=== PATIENT | male | born 1955 | race Two or more races ===

== ENCOUNTER 2025-01-20 22:53 | Inpatient (IN) | payer OTHER ==
[~2025-01-20] VITALS: Ht 177.8 cm; Wt 81.6 kg
[~2025-01-20 22:53] MED LIST: ASA325 MG; ATACAND32 MG; CIPRO500 MG PO; CRESTOR40 MG PO; DIOVAN HCT 80/11 TA1 PO; DIOVAN40 MG PO; FLAGYL500MG PO; IBUPROFEN800 MG PO; INTESTINEX1 CA1 PO; LIPITOR80 MG; NEURONTIN800 MG PO; PLAVIX75 MG; SONATA10 M1 PO; ZOCOR40 MG PO
[2025-01-20] MEDS ORDERED: ATIVAN2 M1 PO (23:38)
[2025-01-20] MEDS ORDERED: AMLODIPINE-OLM1 EAC3 (23:38)
[2025-01-21] MEDS ORDERED: 0.9 % SODIUM CHLORIDE 1,000 ML IV STA (01:51)
[2025-01-21] MEDS ORDERED: KETOROLAC TROMETHAMINE 30 MG VIAL IV STA (01:52)
[2025-01-21] MEDS ORDERED: MORPHINE SULFATE 4 MG/ML VIAL IV STA (01:53)
[2025-01-21] MEDS ORDERED: PIPERACILLIN/TAZOBACTAM SODIUM 3.375 GM VIAL IV STA (02:01)
[2025-01-21 02:39] LABS: URINE APPEARANCE Clear; URINE BILIRRUBIN Negative (NEGATIVE); URINE BLOOD Negative; URINE COLOR Yellow; URINE GLUCOSE Negative (NEGATIVE); URINE KETONE Negative (NEGATIVE); URINE LEUKOCYTE Negative; URINE NITRATE Negative; URINE PROTEIN Negative (NEGATIVE); URINE UROBILINOGEN 0.2 E.U./dl
[2025-01-21 02:40] LABS: HEMATOCRIT 48.1 % (39.0-48.0); MEAN CELL VOLUME 88.6 fL (80.0-100.00); MEAN CORPUSCULAR HEMOGLOBIN 29.4 pg (27.00-32.0); MEAN CORPUSCULAR HGB CONC 33.2 g/dl (32.0-36.0); PLATELET COUNT 271 K/uL (150-450); RED BLOOD COUNT 5.43 M/uL (4.00-6.00); RED CELL DISTRIBUTION WIDTH 14.2 % (11.5-14.5)
[2025-01-21 03:12] LABS: BILIRUBIN TOTAL 0.48 mg/dL (0.3-1.2); CALCIUM 9.6 mg/dL (8.5-10.1); CREATININE SERUM 1.31 mg/dL (0.70-1.30); GFR 53.94; GLOBULINA 4.8 G/DL (2.4-3.5); POTASSIUM 4.59 mEq/L (3.5-5.1); TOTAL PROTEIN 8.8 gm/dL (6.4-8.2)
[2025-01-21 03:16] LABS: INR 1.03; PARTIAL THROMBOPLASTIN TIME 28.5 SECONDS (22.0-34.0); PROTHROMBIN TIME 11.2 SECONDS (9.0-11.5)
[2025-01-21 03:52] LABS: URINE RBC 3.6 uL (0.0-20.8)
[2025-01-21 03:53] LABS: URINE BACTERIA 0 uL (0.0-1933)
[2025-01-21] MEDS ORDERED: FAMOTIDINE/PF 20 MG/2 ML VIAL IV SCH (10:56)
[2025-01-21] MEDS ORDERED: ENOXAPARIN SODIUM 40 MG/0.4 ML SYRINGE SUBCUTANEO SCH (10:57)
[2025-01-21] MEDS ORDERED: MORPHINE SULFATE 4 MG/ML VIAL IV PRN (11:00)
[2025-01-21] MEDS ORDERED: ONDANSETRON HCL 2 MG/ML VIAL IV PRN (11:00)
[2025-01-21] MEDS ORDERED: RINGERS SOLUTION,LACTATED 1,000 ML IV SCH (11:00)
[2025-01-21] MEDS ORDERED: PIPERACILLIN/TAZOBACTAM SODIUM 3.375 GM in 0.9 % SODIUM CHLORIDE 100 ML IV SCH (12:00)
[2025-01-21] MEDS ORDERED: HYOSCYAMINE SULFATE 0.125 MG TAB.SUBL SL SCH (13:00)
[2025-01-21 16:00] VITALS: BP 123/75; O2SAT 93
[2025-01-21] MEDS ORDERED: ATORVASTATIN CALCIUM 40 MG TABLET PO SCH (21:51)
[2025-01-21] MEDS ORDERED: GABAPENTIN 800 MG TABLET PO SCH (21:54)
[2025-01-22 00:39] VITALS: BP 133/74; O2SAT 95
[2025-01-22 06:25] LABS: HEMATOCRIT 41.8 % (39.0-48.0); HEMOGLOBIN 14.1 g/dL (13-16.00); MEAN CELL VOLUME 87.3 fL (80.0-100.00); MEAN CORPUSCULAR HEMOGLOBIN 29.6 pg (27.00-32.0); MEAN CORPUSCULAR HGB CONC 33.9 g/dl (32.0-36.0); PLATELET COUNT 229 K/uL (150-450); RED BLOOD COUNT 4.78 M/uL (4.00-6.00)
[2025-01-22 06:58] LABS: ALBUMIN 3.4 gm/dL (3.4-5.0); CALCIUM 8.9 mg/dL (8.5-10.1); CREATININE SERUM 1.06 mg/dL (0.70-1.30); GFR 68.87; PHOSPHOROUS 3.3 mg/dL (2.5-4.9); POTASSIUM 5.47 mEq/L (3.5-5.1)
[2025-01-22 08:00] VITALS: BP 122/74; O2SAT 96
[2025-01-22] MEDS ORDERED: MORPHINE SULFATE 4 MG/ML CARTRIDGE IV PRN (08:30)
[2025-01-22] MEDS ORDERED: AMLODIPINE BESYLATE 5 MG TABLET PO SCH (09:00)
[2025-01-22] MEDS ORDERED: METOPROLOL SUCCINATE 25 MG TAB.SR.24H PO SCH (09:00)
[2025-01-22] MEDS ORDERED: CANDESARTAN CILEXETIL 32 MG TABLET PO SCH (09:00)
[2025-01-22] MEDS ORDERED: SODIUM POLYSTYRENE SULFONATE 30G/8 TSP PO STA (11:25)
[2025-01-22] MEDS ORDERED: SODIUM POLYSTYRENE SULFONATE 15 G/4 TSP TSP PO SCH (17:00)
[2025-01-22 17:13] VITALS: BP 118/72; O2SAT 94
[2025-01-23 00:41] VITALS: BP 120/81; O2SAT 98
[2025-01-23 08:00] VITALS: BP 132/76; O2SAT 95
[2025-01-23 09:16] LABS: CREATININE SERUM 1.05 mg/dL (0.70-1.30); GFR 69.63; POTASSIUM 4.22 mEq/L (3.5-5.1)
[2025-01-23 17:07] VITALS: BP 120/68; O2SAT 94
[2025-01-24 00:45] VITALS: BP 128/79; O2SAT 97
[2025-01-24 08:00] VITALS: BP 128/79; O2SAT 95
[2025-01-24] MEDS ORDERED: AMOX-CLAV 875-1 EACH PO (10:10)
[2025-01-24] MEDS ORDERED: LEVSIN/SL0.125 MG SL (10:10)
[2025-01-24] MEDS ORDERED: INTESTINEX680 M1 PO (10:10)
== END 2025-01-24 12:51 | disposition home or self-care (01) | DRG 378 ==
LOC: ER 22:56 → SURH 01-21 11:10
PROVIDERS: Surgery; ADMIT Surgery; ATTEND Surgery
PROC: BW21ZZZ Computerized Tomography (CT Scan) of Abdomen and Pelvis (ICD-10-PCS; principal; 2025-01-21)
DX: K57.33 Diverticulitis of large intestine without perforation or abscess with bleeding (principal); N17.9 Acute kidney failure, unspecified; I10 Essential (primary) hypertension; E78.00 Pure hypercholesterolemia, unspecified; G62.9 Polyneuropathy, unspecified